=== PATIENT | male | born 1960 | race Caucasian/White ===

== ENCOUNTER 2020-10-11 12:05 | Emergency (ER) | payer OTHER, SELFPAY ==
[2020-10-11 12:15] VITALS: BP 138/86; PULSE 91; RESP 16; TEMP 36.3; O2SAT 99
--- NOTE | 2020-10-11 13:00 | ED.EYEPROB ---
HPI - Eye Problem General Chief complaint: Eye Problems Stated complaint: Eye Pain Time Seen by Provider: 10/11/20 12:45 Mode of arrival: ambulatory Limitations: no limitations History of Present Illness HPI Narrative: Jovanny Hill is a 60 yo male with no PMH who comes to express care with complaints of dry eyes and very little pain for the last 24 hours. Concerned that he has conjunctivitis or some other condition. No difficulty with sight, no actual pain, does not know if he has been contact evaluated with bacterial conjunctivitis Related Data Allergies Allergy/AdvReac Type Severity Reaction Status Date / Time No Known Allergies Allergy Unknown Unverified 11/29/11 14:12 Review of Systems Review of Systems: Narrative: CONSTITUTIONAL: Denies fever, chills, sweats. EYES: Denies visual changes, redness, discharge. Eyes injected bilaterally ENT: Denies rhinorrhea, congestion, sore throat, otalgia. CARDIOVASCULAR: Denies chest pain, palpitations, edema. RESPIRATORY: Denies dyspnea, wheezing, cough GASTROINTESTINAL: Denies abdominal pain, nausea, vomiting, diarrhea. GENITOURINARY: Denies dysuria, hematuria, abnormal discharge SKIN: Denies rash or itching. NEUROLOGIC: Denies numbness, or focal weakness. PSYCHIATRIC: Denies anxiety or depression. [facility] Past Medical History Medical History No acute medical problems Family History Family History Other No acute medical problems Social History Social History Smoking status: Never smoker Alcohol intake: current Comments At time of signature, I agree with nursing past medical, surgical, social and family history. There is no relevant family history pertinent to the presenting complaint. Exam Narrative: Exam Narrative: GENERAL: This is a well-nourished, well-developed patient, in mild distress. HEAD: normocephalic, atraumatic. EYES: PERR.Sclera injected with lower lid redness; vision is grossly intact. EARS: External ears normal, . Hearing grossly intact. NOSE: External nose normal without nasal discharge, nares without redness, no rhinorrhea. THROAT: Mucous membranes moist, NECK: Neck supple, non-tender CARDIOVASCULAR: Regular rate and rhythm without murmurs, gallops, or rubs. RESPIRATORY: Clear to auscultation. Breath sounds equal bilaterally. No wheezes, rales, or rhonchi. GASTROINTESTINAL: Abdomen soft, non-tender, SKIN: warm, intact with no suspicious lesions or rash, good texture and turgor. NEURO: awake, alert, and oriented to person, place and time. There were no obvious focal neurologic abnormalities. Steady gait EXTREMITIES: Normal range of motion. BACK: Nontender without deformity Course Course Emergency Course: Patient comes to [facility] with bilateral injected conjunctiva, started this morning, no pain Started on polymyxin and mast cell suppressor Follow-up with PCP Vital Signs Vital signs: Vital Signs Temperature 97.3 F L 10/11/20 12:15 Pulse Rate 91 10/11/20 12:15 Respiratory Rate 16 10/11/20 12:15 Blood Pressure 138/86 10/11/20 12:15 Pulse Oximetry 99 10/11/20 12:15 Temperature 97.3 F L 10/11/20 12:15 Pulse Rate 91 10/11/20 12:15 Respiratory Rate 16 10/11/20 12:15 Blood Pressure 138/86 10/11/20 12:15 Pulse Oximetry 99 10/11/20 12:15 MDM - Eye Problem Differential Diagnosis Differential diagnosis: Likely corneal abrasion, conjunctivitis, corneal ulcer and other Discharge Plan Discharge Clinical Impression: Injected eye, bilateral Patient Disposition: Home, Self-Care Condition: Stable Instructions: Conjunctivitis (ED) Additional Instructions: Use drops as directed; use warm compress to eyes 2 times a day; avoid eye irritation wear sunglasses outside until eyes clear Prescriptions: New polymyxin B sulf-trimetho
== END 2020-10-11 13:14 | disposition home or self-care (01) ==
PROVIDERS: Emergency Provider Nurse Practitioner
DX: H11.9 Unspecified disorder of conjunctiva (principal)
CPT/HCPCS: 99213; G0463